=== PATIENT | male | born 1990 | race Caucasian/White ===

== ENCOUNTER 2017-07-19 17:28 | Emergency (ER) | payer MEDICAID ==
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
[2017-07-19 17:55] LABS: PLATELET COUNT 197 10^3/uL (150-400)
[2017-07-19] MEDS ORDERED: HALOPERIDOL LACT 5 MG/ML INJ ONE (18:07)
[2017-07-19] MEDS ORDERED: HALOPERIDOL LACT 5 MG/ML INJ IVP ONE (18:11)
[2017-07-20 00:26] VITALS: BP 132/74
== END 2017-07-20 00:26 | disposition home or self-care (01) ==
DX: R41.82 Altered mental status, unspecified (principal); F20.89 Other schizophrenia; F17.200 Nicotine dependence, unspecified, uncomplicated
CPT/HCPCS: 80305; 96374; G0480; J1630